=== PATIENT | male | born 2000 | race African-American/Black ===

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

== ENCOUNTER 2023-04-03 17:47 | Emergency (ER) | payer MEDICAID, OTHER ==
[~2023-04-03] VITALS: Ht 177.8 cm; Wt 74.8 kg
--- NOTE | 2023-04-03 18:08 | NUR ---
No available room at this time. Pt will be waiting in waiting room.
[2023-04-03 18:10] VITALS: O2SAT 98
--- NOTE | 2023-04-03 19:33 | NUR ---
Still waiting for available ER nurse & room, nursing SBAR given to chargeback specialist Smita. No acute change in patient's condition seen.
--- NOTE | 2023-04-03 20:20 | NUR ---
PT AMB TO 4A WITH STEADY GAIT WITH MOM. AT BEDSIDE FOR EVAL.
[2023-04-03] MEDS ORDERED: LIDOCAINE 1%-EPI 1:100,000 20 ML VIAL ONE (20:49)
--- NOTE | 2023-04-03 21:00 | NUR ---
MD AT BEDSIDE FOR EVAL AND TO EXCISE ABCESS. MOM AT [facility].
[2023-04-03] MEDS ORDERED: SULF1TAB48 PO (21:15)
[2023-04-03] MEDS ORDERED: CEphaleXIN 500 MG CAPSULE PO ONE (21:15)
[2023-04-03] MEDS ORDERED: SULFAMETH/TRIMETH 800/160 MG TABLET PO ONE (21:15)
[2023-04-03] MEDS ORDERED: CEPH500C2 PO (21:16)
[2023-04-03] MEDS ORDERED: NAPR500T6 PO (21:17)
[2023-04-03] MEDS ORDERED: CEphaleXIN 500 MG CAPSULE ONE (21:31)
[2023-04-03] MEDS ORDERED: SULFAMETH/TRIMETH 800/160 MG TABLET ONE (21:31)
--- NOTE | 2023-04-03 21:40 | NUR ---
Patient discharged to home in stable condition. Written and verbal after care instructions given. Patient verbalizes understanding of instructions. Stressed follow up or return to ER for worsening s/s.
== END 2023-04-03 23:15 | disposition home or self-care (01) ==
LOC: ER 17:47
DX: L03.211 Cellulitis of face (principal); L02.01 Cutaneous abscess of face
CPT/HCPCS: 99283; 10060; J3490; A4663